=== PATIENT | male | born 1995 | race Caucasian/White ===

== ENCOUNTER 2020-11-24 14:44 | Emergency (ER) | payer SELFPAY ==
[~2020-11-24] VITALS: Ht 182.9 cm; Wt 107.5 kg
[2020-11-24 14:46] VITALS: BP 129/75
[2020-11-25] MEDS ORDERED: IBUP-2088 PO (15:50)
[2020-11-25] MEDS ORDERED: CYCL10 PO (15:51)
== END 2020-11-24 22:00 | disposition left against medical advice (07) ==
LOC: EDH 14:44
DX: M54.2 Cervicalgia (principal); Z53.21 Procedure and treatment not carried out due to patient leaving prior to being seen by health care provider

== ENCOUNTER 2020-11-25 13:32 | Emergency (ER) | payer SELFPAY ==
[~2020-11-25] VITALS: Ht 182.9 cm; Wt 107.5 kg
[2020-11-25 13:33] VITALS: BP 121/85
[2020-11-25] MEDS ORDERED: KETOROLAC 30MG VIAL (30MG/ML) IM STA (15:27)
[2020-11-25] MEDS ORDERED: HYDROCODONE/ACETAMINOPHEN 5/325 MG TAB PO STA (15:27)
[2020-11-25] MEDS ORDERED: IBUP-2088 PO (15:50)
[2020-11-25] MEDS ORDERED: CYCL10 PO (15:51)
== END 2020-11-25 16:17 | disposition home or self-care (01) ==
LOC: EDH 13:32
DX: G89.29 Other chronic pain (principal); M54.2 Cervicalgia; Z79.1 Long term (current) use of non-steroidal anti-inflammatories (NSAID)
CPT/HCPCS: 96372; 99283; J1885